=== PATIENT | female | born 1955 | race Caucasian/White ===

== ENCOUNTER 2017-07-31 18:00 | Emergency (ER) | payer BC ==
[2017-07-31 18:50] VITALS: BP 158/78
--- NOTE | 2017-07-31 19:47 | RAD ---
HISTORY: Left wrist pain and trauma COMPARISONS: None VIEWS: 3, Frontal, lateral, and oblique views of the left wrist FINDINGS: BONE DENSITY: There is diffuse osteopenia. BONES: There is no displaced fracture. JOINTS: There is no arthropathy. ALIGNMENT: There is no dislocation. SOFT TISSUES: Unremarkable. OTHER FINDINGS: None. IMPRESSION: OSTEOPENIA. NO ACUTE OSSEOUS INJURY. IF SYMPTOMS PERSIST, RECOMMEND REPEAT IMAGING.
[2017-07-31] MEDS ORDERED: Acetaminophen TAB* 325 MG PO ONE (20:10)
--- NOTE | 2017-07-31 20:37 | UC ---
Hand/Wrist HPI - HPI Summary HPI Summary: FALL THIS EVENING ONTO LEFT WRIST, BANDLIKE PAIN ACROSS WRIST WORSE WITH MOVING FINGERS. - History Of Current Complaint Hx Obtained From: Patient, Family/Sql Architect Onset/Duration: Sudden Onset, Lasting Hours Severity Initially: Moderate Severity Currently: Moderate Pain Intensity: 6 Pain Scale Used: 0-10 Numeric Character Of Pain: Dull, Aching Aggravating Factor(s): Movement, Flexion, Extension Alleviating Factor(s): Nothing Associated Signs And Symptoms: Positive: Negative <Goyo Nye - Last Filed: 07/31/17 20:32> <Tavia Echeverria - Last Filed: 07/31/17 20:37> - History Of Current Complaint Chief Complaint: UCUpperExtremity Stated Complaint: LEFT WRIST Time Seen by Provider: 07/31/17 18:46 - Allergies/Home Medications Allergies/Adverse Reactions: Allergies Allergy/AdvReac Type Severity Reaction Status Date / Time No Known Allergies Allergy Verified 07/31/17 18:42 Home Medications: Home Medications NK [No Home Medications Reported] 07/31/17 [History Confirmed 07/31/17] PMH/Surg Hx/FS Hx/Imm Hx Previously Healthy: Yes - Surgical History Surgical History: Yes Surgery Procedure, Year, and Place: 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 BRONCOSCOPY 2016 - Family History Known Family History: Positive: Other - NO JOINT LAXITY OR CONNECTIVE TISSUE DISORDERS - Social History Occupation: Retired Lives: With Family Alcohol Use: Rare Substance Use Type: None Smoking Status (MU): Never Smoked Tobacco <Goyo Nye - Last Filed: 07/31/17 20:32> Review of Systems Constitutional: Negative Skin: Negative Eyes: Negative ENT: Negative Respiratory: Negative Cardiovascular: Negative Gastrointestinal: Negative Genitourinary: Negative Motor: Negative Neurovascular: Negative Musculoskeletal: Arthralgia, Myalgia Neurological: Negative Psychological: Negative Is Patient Immunocompromised?: No All Other Systems Reviewed And Are Negative: Yes <Goyo Nye - Last Filed: 07/31/17 20:32> Physical Exam Triage Information Reviewed: Yes Appearance: Well-Appearing, Well-Nourished, Pain Distress Vital Signs: Initial Vital Signs Temp 98.1 F 07/31/17 18:43 Pulse 61 07/31/17 18:43 Resp 18 07/31/17 18:43 BP 158/78 07/31/17 18:43 Pulse Ox 99 07/31/17 18:43 Vital Signs Reviewed: Yes Eye Exam: Normal Eyes: Positive: Conjunctiva Clear ENT Exam: Normal ENT: Positive: Normal ENT inspection, Hearing grossly normal, Pharynx normal Dental Exam: Normal Neck exam: Normal Neck: Positive: Supple, Nontender, No Lymphadenopathy Respiratory Exam: Normal Respiratory: Positive: Chest non-tender, Lungs clear, Normal breath sounds, No respiratory distress, No accessory muscle use Cardiovascular Exam: Normal Cardiovascular: Positive: RRR, No Murmur, Pulses Normal, Brisk Capillary Refill Abdominal Exam: Normal Musculoskeletal: Positive: No Edema, Strength Limited @ - LEFT WRIST, ROM Limited @ - LEFT WRIST Neurological Exam: Normal Psychological Exam: Normal Skin Exam: Normal <Goyo Nye - Last Filed: 07/31/17 20:32> Vital Signs: Initial Vital Signs Temp 98.1 F 07/31/17 18:43 Pulse 61 07/31/17 18:43 Resp 18 07/31/17 18:43 BP 158/78 07/31/17 18:43 Pulse Ox 99 07/31/17 18:43 <Tavia Echeverria - Last Filed: 07/31/17 20:37> Diagnostics - Radiology No standard instances Xray Interpretation: Positive (See Comments) - Interpreted by radiologist, reviewed by MORRO. Interpretation : OSTEOPENIA. NO ACUTE OSSEOUS INJURY. IF SYMPTOMS PERSIST, RECOMMEND REPEAT IMAGING. Radiology Interpretation Completed By: ED Physician, Radiologist <Goyo Nye - Last Filed: 07/31/17 20:32> Hand/Wrist Course/Dx - Differential Dx/Diagnosis Differential Diagnosis/HQI/PQRI: Fracture, Sprain, Strain Provider Diagnoses: LEFT WRIST SPRAIN <Goyo Nye - Last Filed: 07/31/17 20:32> Discharge <Goyo Nye - Last Filed: 07/31/17 20:32> <Tavia Echeverria - Last Filed: 07/31/17 20:37> - Discharge Plan Condition: Stable Disposition: HOME Patient Education Materials: Suspected Fracture (ED), Wrist Sprain (ED) Referrals: Vinay Horvath MD [Medical Doctor] - Sheila Whittington MD [Primary Care Provider] - Attestation Statement User Type: Provider - I was available for consult. This patient was seen by the SHELBI. The patient was not presented to, seen by, or examined by me. -Mera <Tavia Echeverria - Last Filed: 07/31/17 20:37>
== END 2017-07-31 20:20 | disposition home or self-care (01) ==
LOC: UCCORT 18:00
DX: S63.502A Unspecified sprain of left wrist, initial encounter (principal); W19.XXXA Unspecified fall, initial encounter; Y93.9 Activity, unspecified; Y92.9 Unspecified place or not applicable
CPT/HCPCS: 99213; A9270-GY; G0463